=== PATIENT | male | born 1965 | race Caucasian/White ===

== ENCOUNTER 2022-04-24 11:29 | Outpatient (CLI) | payer OTHER, SELFPAY ==
[2022-04-24 12:38] LABS: SARS-CoV-2 Ag Negative (Negative)
[2022-04-24 12:50] LABS: SARS-CoV-2 RNA PCR Negative (Negative)
== END 2022-04-24 11:30 | disposition home or self-care (01) ==
LOC: CHSLAB 11:35
PROVIDERS: PCP Family Medicine; Visit Provider Family Medicine
DX: Z20.822 Contact with and (suspected) exposure to COVID-19 (principal)
CPT/HCPCS: 87426; C9803; U0003; U0005